=== PATIENT | female | born 1980 | race Hispanic/Latino ===

== ENCOUNTER 2021-01-06 20:39 | Emergency (ER) | payer SELFPAY ==
[~2021-01-06] VITALS: Ht 162.6 cm; Wt 78.0 kg
[2021-01-06] MEDS ORDERED: IBUPROFEN IB200 MG PO (20:59)
[2021-01-06] MEDS ORDERED: ACETAMINOPHEN 325 MG TAB PO ONE (21:00)
[2021-01-06] MEDS ORDERED: IBUPROFEN 600 MG TAB PO ONE (21:00)
[2021-01-06] MEDS ORDERED: TYLENOL # 31 EA PO (21:01)
[2021-01-06] MEDS ORDERED: IBUPROFEN 600 MG TAB ONE (21:14)
[2021-01-06] MEDS ORDERED: ACETAMINOPHEN 325 MG TAB ONE (21:15)
[2021-01-06 22:50] VITALS: BP 142/60
== END 2021-01-06 22:50 | disposition home or self-care (01) ==
LOC: FSED 20:45
DX: S93.401A Sprain of unspecified ligament of right ankle, initial encounter (principal); X50.1XXA Overexertion from prolonged static or awkward postures, initial encounter; Y93.01 Activity, walking, marching and hiking; Y92.008 Other place in unspecified non-institutional (private) residence as the place of occurrence of the external cause
CPT/HCPCS: 99283